=== PATIENT | male | born 1975 | race Caucasian/White ===

== ENCOUNTER 2020-08-22 18:17 | Emergency (ER) | payer MEDICARE, OTHER ==
[~2020-08-22 18:17] MED LIST: CLEOCIN HCL300 MG PO; IBUPROFEN600 MG PO
[2020-08-22 19:52] LABS: HEMOGLOBIN 16.4 gm/dl (14.0-17.5); RED BLOOD COUNT 5.17 M/UL (4.20-5.50); WHITE BLOOD COUNT 11.6 K/UL (4.5-11.0)
[2020-08-22 20:24] LABS: BUN/CREATININE RATIO 33 (0-10)
== END 2020-08-23 11:50 ==
LOC: ER1 18:17
PROVIDERS: Emergency Medicine
DX: F33.1 Major depressive disorder, recurrent, moderate (principal); I10 Essential (primary) hypertension; M62.82 Rhabdomyolysis; F10.10 Alcohol abuse, uncomplicated; F15.10 Other stimulant abuse, uncomplicated; Z20.822 Contact with and (suspected) exposure to COVID-19; F17.210 Nicotine dependence, cigarettes, uncomplicated; R94.5 Abnormal results of liver function studies; K50.90 Crohn's disease, unspecified, without complications; F41.9 Anxiety disorder, unspecified; E43 Unspecified severe protein-calorie malnutrition; Z90.49 Acquired absence of other specified parts of digestive tract
CPT/HCPCS: 80053; 80307; 81001; 82550; 82553; 84484; 85025; 93005; 99285; U0002